=== PATIENT | female | born 1980 | race Two or more races ===

== ENCOUNTER 2021-11-20 13:50 | Emergency (ER) | payer MEDICAID ==
[~2021-11-20] VITALS: Ht 170.2 cm; Wt 50.8 kg
--- NOTE | 2021-11-20 14:10 | NUR ---
Bibs w/ c/o RLQ pain since yesterday 10/10 pain scale, radiates to R flank. To ER bed 2.
[2021-11-20] MEDS ORDERED: ONDANSETRON HCL/PF 4 MG/2 ML VIAL IVP ONE (14:30)
[2021-11-20] MEDS ORDERED: MORPHINE SULFATE INJ 2 MG/ML DISP.SYRIN IV ONE ×2 (14:30→19:00)
[2021-11-20] MEDS ORDERED: IV NS 0.9% 1,000 ML BAG IV ONE ×2 (14:30→17:30)
--- NOTE | 2021-11-20 14:30 | NUR ---
URINE SAMPLE COLLECTED AND SENT TO LAB
[2021-11-20] MEDS ORDERED: ONDANSETRON HCL/PF 4 MG/2 ML VIAL ONE (14:40)
[2021-11-20] MEDS ORDERED: MORPHINE SULFATE INJ 4 MG/ML DISP.SYRIN ONE ×2 (14:40→19:01)
[2021-11-20 14:43] LABS: BILIRUBIN,URINE NEGATIVE (NEGATIVE); COLOR,URINE YELLOW (YELLOW); LEUKOCYTE ESTERASE ,URINE SMALL (NEGATIVE); NITRITE, URINE NEGATIVE (NEGATIVE); PH,URINE 5.5 (5.0-8.0); PROTEIN,URINE NEGATIVE (NEGATIVE); UGLUCOSE NEGATIVE (NEGATIVE); UROBILINOGEN,URINE 0.2 EU/dL (0.2)
--- NOTE | 2021-11-20 14:45 | NUR ---
PHLEB TECH AT BEDSIDE FOR BLOOD DRAW
--- NOTE | 2021-11-20 14:55 | NUR ---
IV LINE ESTABLISHED ON LAC #20.
[2021-11-20 14:59] LABS: BASOPHILS % (AUTO) 0.5 % (0.0-2.0); EOSINOPHILS % (AUTO) 0.4 % (0.0-6.0); HEMATOCRIT 44 % (33-45); LYMPHOCYTES # (AUTO) 1.8 K/uL (0.8-4.8); LYMPHOCYTES % (AUTO) 38.4 % (20.0-44.0); MEAN CORPUSCULAR HGB CONC 32 g/dl (31.0-36.0); MEAN CORPUSCULAR VOLUME 88 fL (82-100); MONOCYTES # (AUTO) 0.3 K/uL (0.1-1.30); MONOCYTES % (AUTO) 7.3 % (2.0-12.0); NEUTROPHILS # (AUTO) 2.5 K/uL (1.8-8.9); NEUTROPHILS % (AUTO) 53.4 % (43.0-81.0); PLATELET COUNT (AUTO) 183 K/uL (150-450); RED BLOOD CELL COUNT(AUTO) 4.93 MIL/uL (4.0-5.2); WHITE BLOOD COUNT (AUTO) 4.7 K/uL (4.3-11.0)
[2021-11-20 15:16] LABS: CALCIUM, SERUM 8.8 mg/dL (8.5-10.1); CREATININE 0.5 mg/dL (0.6-1.3); POTASSIUM 3.8 mmol/L (3.5-5.1)
[2021-11-20 15:21] LABS: ALBUMIN 3.8 g/dL (3.4-5.0); BILIRUBIN,DIRECT 0.2 mg/dL (0.0-0.2); BILIRUBIN,TOTAL 0.6 mg/dL (0.2-1.0); TOTAL PROTEIN, SERUM 7.3 g/dL (6.4-8.2)
[2021-11-20 15:25] LABS: BACTERIA,URINE 2+ /HPF (None Seen)
--- NOTE | 2021-11-20 16:41 | NUR ---
pt taken to radiology for ct
[2021-11-20] MEDS ORDERED: IOHEXOL-300 100 ML VIAL IV ONE (16:43)
[2021-11-20] MEDS ORDERED: IV NS 0.9% 250 ML IV ONE (16:43)
--- NOTE | 2021-11-20 18:06 | NUR ---
CALLED RADIOLOGY FOR US PROCEDURE; ON THE WAY PER RADIOLOGY.
--- NOTE | 2021-11-20 19:25 | NUR ---
US TECH AT PT'S BEDSIDE
[2021-11-20] MEDS ORDERED: KETOROLAC TROMETHAMINE 15 MG/ML VIAL ONE (20:55)
[2021-11-20] MEDS ORDERED: KETOROLAC TROMETHAMINE INJ 30 MG/ML VIAL IV ONE (21:00)
[2021-11-20] MEDS ORDERED: HYDR-4303 PO (21:45)
[2021-11-20] MEDS ORDERED: IBUP-1957 PO (21:45)
--- NOTE | 2021-11-20 21:59 | NUR ---
Patient discharged to home in stable condition. Written and verbal after care instructions given. Patient verbalizes understanding of instruction. IV removed. Catheter intact and site benign. Pressure and 4x4 applied to site. No bleeding noted.
[2021-11-20] MEDS ORDERED: HYDROCODONE/APAP 10/325MG TABLET ONE (22:20)
[2021-11-20 22:23] VITALS: BP 10/71
[2021-11-20] MEDS ORDERED: HYDROCODONE/APAP 10/325MG TABLET PO ONE (22:30)
== END 2021-11-20 22:23 | disposition home or self-care (01) ==
LOC: EDBD 13:54 → ER 13:54
DX: N83.201 Unspecified ovarian cyst, right side (principal); R10.2 Pelvic and perineal pain
CPT/HCPCS: 99285; 74177; 96374; 76856; 96361; 96375; 96376; 85025; 80048; 87086; 83690; 80076; 84703; 81001; 36415; J2270 ×2; J2405; J7030 ×2; J7050; Q9967; J1885